=== PATIENT | female | born 1950 | race Caucasian/White ===

== ENCOUNTER → 2025-04-30 09:26 | Outpatient (REF) | payer OTHER, SELFPAY | LOC: MRI 3T 09:26 | PROVIDERS: ATTENDING PHYSICIAN Physician Assistant Surgical; FAMILY PHYSICIAN Family Medicine | DX: M54.16 Radiculopathy, lumbar region (principal); M41.9 Scoliosis, unspecified; M47.816 Spondylosis without myelopathy or radiculopathy, lumbar region | CPT/HCPCS: 72148 ==